=== PATIENT | female | born 1930 | race Caucasian/White ===

== ENCOUNTER → 2018-02-17 | Outpatient (CLI) | payer MEDICARE, OTHER ==
[~2018-02-17] MED LIST: ACDPT PO; ENAL10TA PO; FLUT12AE4 IH; FURO40TA4 PO; HYDR-2890 PO; HYDR-3820 PO; HYDR25TA4 PO; IPRA3AMP31 IH; LOSA25TA6 PO; MECL-124 PO; NFBIOT1000 PO; POTA20TA8 PO; POTA99TA15 PO; PRED10TA22 PO; RANI150T90 PO; ROPI1TAB PO; ROPI1TAB2 PO; VIT1CAPS5 PO
--- NOTE | 2018-02-17 16:21 | Diagnostic Imaging Report ---
PROCEDURE: US right lower extremity venous. TECHNIQUE: Multiple real-time grayscale images were obtained over the right lower extremity in various projections. Additional spectral analysis and color Doppler duplex images were also obtained. INDICATION: Right leg swelling. COMPARISON: 02/01/2014. FINDINGS: The right common femoral, femoral and popliteal veins are patent by color Doppler imaging and without DVT. Visualized proximal aspects of the greater saphenous, deep femoral, posterior tibial and peroneal veins are also patent. All of the evaluated deep venous structures demonstrate normal compressibility and waveform augmentation where applicable. IMPRESSION: No right lower extremity deep venous thrombosis (DVT). Findings were called to Daisy King APRN, by Dr. Jose Mendez at 04:17 p.m. on 02/17/2018. Dictated by: Dictated on workstation # [id number]
== END ==
LOC: RAD 14:52
PROVIDERS: ATTEND Nurse Practitioner Family
DX: R22.41 Localized swelling, mass and lump, right lower limb (principal)

== ENCOUNTER 2018-11-21 15:55 | Emergency (ER) | payer MEDICARE, OTHER ==
[~2018-11-21] VITALS: Ht 147.3 cm; Wt 77.1 kg
[~2018-11-21 15:55] MED LIST changes: +LOSA25TA41 PO; -LOSA25TA6 PO
[2018-11-21 16:15] LABS: BASOPHILS % (AUTO) 0 % (0-10); EOSINOPHILS # (AUTO) 0.1 10^3/uL (0.0-0.3); EOSINOPHILS % (AUTO) 2 % (0-10); HEMATOCRIT 32 % (35-52); HEMOGLOBIN 9.7 G/DL (11.5-16.0); LYMPHOCYTES # (AUTO) 2.3 X 10^3 (1.0-4.0); LYMPHOCYTES % (AUTO) 27 % (12-44); MEAN CORPUSCULAR HEMOGLOBIN 28 PG (25-34); MEAN CORPUSCULAR HGB CONC 31 G/DL (32-36); MEAN CORPUSCULAR VOLUME 91 FL (80-99); MEAN PLATELET VOLUME 9.7 FL (7.4-10.4); MONOCYTES # (AUTO) 0.7 X 10^3 (0.0-1.0); MONOCYTES % (AUTO) 8 % (0-12); NEUTROPHILS # (AUTO) 5.3 X 10^3 (1.8-7.8); NEUTROPHILS % (AUTO) 63 % (42-75); PLATELET COUNT 289 10^3/uL (130-400); WHITE BLOOD COUNT 8.4 10^3/uL (4.3-11.0)
--- NOTE | 2018-11-21 16:20 | ED Cough/URI ---
General Chief Complaint: Cough/Cold/Flu Symptoms Stated Complaint: COUGH Nursing Triage Note: states she started to cough this morning and the cough has gotten worse throughout the day today Sepsis Screen: No Definite Risk (LANDON MIRAMONTES STUDENT) History of Present Illness Date Seen by Provider: Nov 21, 2018 Time Seen by Provider: 16:05 Timing/Duration: this morning Severity/Quality: moderate, dry cough Prior Episodes/Possible Cause: other (prior pneumonia ) Modifying Factors: Improves With Rest Associated Symptoms: shortness of breath, wheezing (LANDON MIRAMONTES STUDENT) Allergies and Home Medications Allergies Coded Allergies: oxycodone (Verified Allergy, Unknown, 09/24/14) Home Medications Azithromycin 250 Mg Tablet, 250 MG PO DAILY Prescribed by: DARWIN REDD on 11/21/181804 Biotin 1,000 Mcg Tablet, 1,000 MCG PO DAILY, (Reported) Fluticasone/Salmeterol 12 Gm Hfa.aer.ad, 2 PUFF IH BID@08,20 Prescribed by: MICAELA SANTANA on 06/03/15 0835 Furosemide 40 Mg Tablet, 40 MG PO DAILY, (Reported) Hydrocodone/Acetaminophen 1 Each Tablet, 1 TAB PO Q4H PRN for PAIN, (Reported) Ipratropium/Albuterol Sulfate 3 Ml Ampul.neb, 3 ML IH Q4H PRN for SHORTNESS OF BREATH 3ml inhaled with nebulizer three times daily and q 4 hours prn shortness of breath Prescribed by: MICAELA SANTANA on 06/03/15 0835 Losartan Potassium 25 Mg Tablet, 25 MG PO DAILY Prescribed by: MICAELA SANTANA on 06/03/15 0839 Potassium Chloride 20 Meq Tab.er.prt, 20 MEQ PO DAILY@0700 Prescribed by: MICAELA SANTANA on 06/03/15 0835 Prednisone 10 Mg Tab.ds.pk, 10 MG PO DAILY Take with food, take 6 tabs(60mg)daily,decrease by 1 tab(10mg)every other day until tabs are finished. Prescribed by: MICAELA SANTANA on 06/03/15 0835 Prednisone 20 Mg Tab, 1 TAB PO DAILY Prescribed by: DARWIN REDD on 11/21/181804 Ranitidine HCl 150 Mg Tablet, 150 MG PO DAILY PRN for HEARTBURN, (Reported) Ropinirole HCl 1 Mg Tablet, 1 MG PO TID, (Reported) Vit A/C/E/Zinc/Co 1 Cap Capsule, 1 CAP PO BID, (Reported) Patient Home Medication List Home Medication List Reviewed: Yes (DARWIN MOBLEY MD) Review of Systems Review of Systems Constitutional: malaise, weakness EENTM: see HPI Respiratory: see HPI Cardiovascular: edema Gastrointestinal: no symptoms reported Skin: no symptoms reported Psychiatric/Neurological: Pre-Existing Deficit (LANDON MIRAMONTES) : No Musculoskeletal: no symptoms reported Hematologic/Lymphatic: No Symptoms Reported (DARWIN MOBLEY MD) Past Yeygivi-Qszfzc-Znynlk Hx Past Med/Social Hx: Reviewed and Corrections made (history difficult due to confusion) (LANDON MIRAMONTES) Patient Social History 2nd Hand Smoke Exposure: No Recent Foreign Travel: No Contact w/Someone Who Travel: No Recent Infectious Disease Expo: No (LANDON MIRAMONTES) Immunizations Up To Date Tetanus Booster (TDap): More than 5yrs Date of Pneumonia Vaccine: Mar 28, 2012 Date of Influenza Vaccine: Dec 12, 2014 (LANDON MIRAMONTES) Seasonal Allergies Seasonal Allergies: No (LANDON MIRAMONTES) Past Medical History Abdominal, Joint Replacement, Neurological, Orthopedic Respiratory: Yes Pneumonia Currently Using CPAP: No Currently Using BIPAP: No Chronic Edema/Swelling, Hypertension Neuropathy, Vertigo Reproductive Disorders: No Female Reproductive Disorders: Denies Sexually Transmitted Disease: No HIV/AIDS: No Gastroesophageal Reflux Arthritis, Chronic Back Pain Endocrine: Yes Diabetes, Non-Insulin dep Macular Degeneration Hearing Impairment: Hard of Hearing (LANDON MIRAMONTES) Family Medical History Arthritis 19 MOTHER G8 SISTER Diabetes mellitus G8 SISTER Headache disorder DAUGHTER DAUGHTER Hypercholesterolemia DAUGHTER Hypertension DAUGHTER Myocardial infarction 19 FATHER Neoplasm G8 SISTER DAUGHTER Heart Disease, Diabetes, Hypertension (LANDON MIRAMONTES) Physical Exam Vital Signs - First Documented 11/21/18 15:58 Temp 35.8 Pulse 87 Resp 22 B/P (MAP) 108/69 (82) (DARWIN MOBLEY MD) Capillary Refill : Less Than 3 Seconds (LANDON MIRAMONTES) Height: 4'10.00" Weight: 170lbs. 5.0oz. 77.365520id; 33.78 BMI Method:Stated General Appearance: moderate distress, obese Eyes: Bilateral Eye Normal Inspection, Bilateral Eye PERRL HEENT: PERRL/EOMI; No pharyngeal erythema, No tonsillar exudate; other (chronic hearing loss) Neck: full range of motion, normal inspection Respiratory: respiratory distress, crackles (R lower lobe), wheezing (throughout) Cardiovascular: regular rate, rhythm Gastrointestinal: non tender, soft Extremities: other (bilateral edema) Neurologic/Psychiatric: alert, normal mood/affect, oriented x 3 (LANDON MIRAMONTES STUDENT) Progress/Results/Core Measures Suspected Sepsis Recent Fever Within 48 Hours: No Infection Criteria Present: None New/Unexplained Altered Menta: No Sepsis Screen: No Definite Risk SIRS Temperature: Pulse: 87 Respiratory Rate: 22 Laboratory Tests 11/21/18 16:05: Blood Pressure 108 /69 Mean: 82 Laboratory Tests 11/21/18 16:05: (LANDON MIRAMONTES STUDENT) Results/Orders Lab Results Laboratory Tests Test 11/21/18 16:05 11/21/18 16:30 Range/Units White Blood Count 8.4 4.3-11.0 10^3/uL Red Blood Count 3.48 L 4.35-5.85 10^6/uL Hemoglobin 9.7 L 11.5-16.0 G/DL Hematocrit 32 L 35-52 % Mean Corpuscular Volume 91 80-99 FL Mean Corpuscular Hemoglobin 28 25-34 PG Mean Corpuscular Hemoglobin Concent 31 L 32-36 G/DL Red Cell Distribution Width 16.0 H 10.0-14.5 % Platelet Count 289 130-400 10^3/uL Mean Platelet Volume 9.7 7.4-10.4 FL Neutrophils (%) (Auto) 63 42-75 % Lymphocytes (%) (Auto) 27 12-44 % Monocytes (%) (Auto) 8 0-12 % Eosinophils (%) (Auto) 2 0-10 % Basophils (%) (Auto) 0 0-10 % Neutrophils # (Auto) 5.3 1.8-7.8 X 10^3 Lymphocytes # (Auto) 2.3 1.0-4.0 X 10^3 Monocytes # (Auto) 0.7 0.0-1.0 X 10^3 Eosinophils # (Auto) 0.1 0.0-0.3 10^3/uL Basophils # (Auto) 0.0 0.0-0.1 10^3/uL Sodium Level 138 135-145 MMOL/L Potassium Level 4.5 3.6-5.0 MMOL/L Chloride Level 106 98-107 MMOL/L Carbon Dioxide Level 21 21-32 MMOL/L Anion Gap 11 5-14 MMOL/L Blood Urea Nitrogen 42 H 7-18 MG/DL Creatinine 1.72 H 0.60-1.30 MG/DL Estimat Glomerular Filtration Rate 28 BUN/Creatinine Ratio 24 Glucose Level 128 H 70-105 MG/DL Calcium Level 8.6 8.5-10.1 MG/DL Corrected Calcium 8.8 8.5-10.1 MG/DL Total Bilirubin 0.3 0.1-1.0 MG/DL Aspartate Amino Transf (AST/SGOT) 27 5-34 U/L Alanine Aminotransferase (ALT/SGPT) 14 0-55 U/L Alkaline Phosphatase 120 40-136 U/L Total Protein 7.6 6.4-8.2 GM/DL Albumin 3.8 3.2-4.5 GM/DL C-Reactive Protein High Sensitivity 2.42 H 0.00-0.50 MG/DL B-Type Natriuretic Peptide 121.1 H <100.0 PG/ML (DARWIN MOBLEY MD) Micro Results Microbiology 11/21/18 Influenza Types A,B Antigen (JOCELYN) - Final, Complete (DARWIN MOBLEY MD) My Orders Orders - DARWIN MOBLEY MD Ed Iv/Invasive Line Start (11/21/18 15:59) Cbc With Automated Diff (11/21/18 15:59) Comprehensive Metabolic Panel (11/21/18 15:59) Influenza A And B Antigens (11/21/18 15:59) Chest Pa/Lat (2 View) (11/21/18 15:59) Albuterol/Ipra Inhalation Soln (Duoneb I (11/21/18 16:45) Svn Small Volume Nebulizer (11/21/18 16:41) BNP (11/21/18 16:41) Hs C Reactive Protein (11/21/18 16:41) Ns Iv 500 Ml (Sodium Chloride 0.9%) (11/21/18 17:16) Methylprednisolone Sod Succ (Solu-Medrol (11/21/18 17:30) Azithromycin Injection (Zithromax Inject (11/21/18 17:30) Rx-Albuterol Inhaler (Rx-Proair) (11/21/18 18:05) (DARWIN MOBLEY MD) Medications Given in ED Current Medications Medications Dose Ordered Sig/Luann Route Start Time Stop Time Status Last Admin Dose Admin Albuterol/ Ipratropium 3 ml ONCE ONCE INH 11/21/18 16:45 11/21/18 16:46 DC 11/21/18 16:47 3 ML Azithromycin 500 mg/Sodium Chloride 250 ml @ 250 mls/hr ONCE ONCE IV 11/21/18 17:30 11/21/18 18:29 11/21/18 17:40 250 MLS/HR Methylprednisolone Sodium Succinate 125 mg ONCE ONCE IVP 11/21/18 17:30 11/21/18 17:31 DC 11/21/18 17:31 125 MG Sodium Chloride 500 ml @ 0 mls/hr Q0M ONCE IV 11/21/18 17:16 11/21/18 17:17 DC 11/21/18 17:31 0 MLS/HR (DARWIN MOBLEY MD) Vital Signs/I&O 11/21/18 15:58 Temp 35.8 Pulse 87 Resp 22 B/P (MAP) 108/69 (82) (DARWIN MOBLEY MD) Vital Signs/I&O Capillary Refill : Less Than 3 Seconds (LANDON MIRAMONTES PA STUDENT) Blood Pressure Mean: 82 Diagnostic Imaging Diagonstic Imaging: Xray Plain Films/CT/US/NM/MRI: chest Comments Chest x-ray viewed by me and report reviewed. See report below: NAME: [facility] REC#: [id number] PT STATUS: REG ER : 1930 PHYSICIAN: DARWIN MOBLEY MD ADMIT DATE: 11/21/18/ER Signed Date of Exam: 11/21/18 CHEST PA/LAT (2 VIEW) EXAMINATION: PA and lateral chest at 4:26 p.m. INDICATION: Cough. FINDINGS: As on the prior exam of 05/14/2015, there is shallow inspiration. The heart is enlarged but stable. The central pulmonary vascularity is prominent but unchanged when compared to the prior exam. There is no evidence for overt failure and there is no sign of pneumonia or of a pleural effusion. The mediastinum is not widened. The osseous structures are intact. The dorsal stimulator device seen previously is again evident and no different. IMPRESSION: There is cardiomegaly but there is no evidence for an acute cardiopulmonary abnormality. Dictated by: Dictated on workstation # [id number] Dict: 11/21/18 1638 Trans: 11/21/181710 Interpreted by: CARMELITA BOOTH MD Electronically signed by: CARMELITA BOOTH MD 11/21/181710 (DARWIN MOBLEY MD) Departure Impression Primary Impression: Acute bronchitis Qualified Codes: J20.9 - Acute bronchitis, unspecified Additional Impression: Acute kidney injury Disposition: HOME, SELF-CARE Condition: Improved Departure-Patient Inst. Decision time for Depature: 18:02 (DARWIN MOBLEY MD) Referrals: MICAELA SANTANA MD (PCP/Family) Primary Care Physician Patient Instructions: Acute Bronchitis, Adult (DC) Add. Discharge Instructions: Drink plenty of clear liquids, especially water. Use your inhaler with a spacer as directed. Start azithromycin and prednisone and complete the entire 4 days. Please do not hesitate to return to the emergency room if symptoms worsen. Follow-up with your primary care provider in a couple of days. All discharge instructions reviewed with patient and/or family. Voiced understanding. Scripts Prednisone (Prednisone) 20 Mg Tab 1 TAB PO DAILY, #4 TAB Prov: DARWIN MOBLEY MD 11/21/18 Azithromycin (Azithromycin) 250 Mg Tablet 250 MG PO DAILY, #4 TAB 0 Refills Prov: DARWIN MOBLEY MD 11/21/18 I personally interviewed and examined this patient along with Elian Miramontes, PA student. I reviewed his notes including history, physical exam, and assessment. I agree with his documentation with the following additions and changes: This 88-year-old woman presents to the emergency room with primary complaint of persistent cough most notably intense this morning. She has been unable to rest. She denies fever. She has wheezing but denies COPD history. She also re ports having some dependent edema of the legs bilaterally. Exam: Gen.: Alert, oriented, uncomfortable due to cough HEENT: Normocephalic and atraumatic, mucous membranes moist Neck: Normal to inspection, no JVD Heart: Regular rate and rhythm without murmur Lungs: Crackles in the right base, wheezes throughout, Abdomen: Soft, nontender Extremities: Pitting edema of the lower extremities equal bilaterally Skin: Warm and dry without rashes Neuro/psych: Alert, oriented, no focal deficits Workup was pursued. Patient does not seem to be in congestive heart failure. BUN and creatinine were elevated although there is no recent baseline. A 500 mL normal saline bolus is being administered. Although chest x-ray and lab work did not clearly indicate pneumonia, there are crackles in the right lower lung on exam raising concern for possible pneumonia. For this reason a dose of azithromycin was administered by IV route along with Solu-Medrol 125 mg to help with the wheezing/bronchospasm. Prescriptions were provided as well. We discussed return precautions and the need to have a low threshold for returning. An albuterol inhaler with spacer is being dispensed with education being provided from respiratory therapy. (DARWIN MOBLEY MD) Copy Copies To 1: MICAELA SANTANA MD, NICK PA STUDENT Nov 21, 2018 16:20 DARWIN MOBLEY MD Nov 21, 2018 17:25
[2018-11-21 16:37] LABS: ALBUMIN 3.8 GM/DL (3.2-4.5); BILIRUBIN,TOTAL 0.3 MG/DL (0.1-1.0); CALCIUM 8.6 MG/DL (8.5-10.1); CREATININE SERUM 1.72 MG/DL (0.60-1.30); POTASSIUM 4.5 MMOL/L (3.6-5.0); TOTAL PROTEIN 7.6 GM/DL (6.4-8.2)
--- NOTE | 2018-11-21 16:44 | Diagnostic Imaging Report ---
EXAMINATION: PA and lateral chest at 4:26 p.m. INDICATION: Cough. FINDINGS: As on the prior exam of 05/14/2015, there is shallow inspiration. The heart is enlarged but stable. The central pulmonary vascularity is prominent but unchanged when compared to the prior exam. There is no evidence for overt failure and there is no sign of pneumonia or of a pleural effusion. The mediastinum is not widened. The osseous structures are intact. The dorsal stimulator device seen previously is again evident and no different. IMPRESSION: There is cardiomegaly but there is no evidence for an acute cardiopulmonary abnormality. Dictated by: Dictated on workstation # [id number]
[2018-11-21] MEDS: RT-ALBUTEROL/IPRATROPIUM 3 ML (DUONEB) VIAL INH ONE (16:47)
[2018-11-21] MEDS: NS IV 500 ML 500 ML IV ONE (17:31)
[2018-11-21] MEDS: methylPREDNISolone 125 MG (Solu-MEDROL) VIAL IVP ONE (17:31)
[2018-11-21] MEDS: AZITHROMYCIN INJECTION 500 MG in NS (IVPB) 250 ML IV ONE (17:40)
[2018-11-21] MEDS ORDERED: AZIT250T12 PO (18:05)
[2018-11-21] MEDS ORDERED: PRD20T PO (18:05)
[2018-11-21] MEDS: RX-ALBUTEROL INHALER (PROAIR) 8.5 GM IH STA (18:58)
--- NOTE | 2018-11-21 19:00 | NUR ---
report recieved from mic mathias. assumed primary nurse role
[2018-11-21 19:30] VITALS: BP 108/69
== END 2018-11-21 19:30 | disposition home or self-care (01) ==
LOC: EDUNIT# 15:55 → ER 15:56
DX: J20.9 Acute bronchitis, unspecified (principal); N17.9 Acute kidney failure, unspecified; I10 Essential (primary) hypertension; E11.40 Type 2 diabetes mellitus with diabetic neuropathy, unspecified; K21.9 Gastro-esophageal reflux disease without esophagitis; Z88.5 Allergy status to narcotic agent; Z79.52 Long term (current) use of systemic steroids; Z87.01 Personal history of pneumonia (recurrent); Z82.49 Family history of ischemic heart disease and other diseases of the circulatory system
CPT/HCPCS: 36415; 71046; 80053; 83880; 85025; 86141; 87804; 94640; 94664; 96361; 96365; 96375